=== PATIENT | female | born 1975 | race Two or more races ===

== ENCOUNTER 2017-11-27 02:07 | Inpatient (IN) | payer MEDICAID ==
[~2017-11-27] VITALS: Ht 149.9 cm; Wt 64.5 kg
[2017-11-27] MEDS ORDERED: GABA600T2 PO (02:17)
[2017-11-27] MEDS ORDERED: CALC500T3 PO (02:17)
[2017-11-27] MEDS ORDERED: FOLI1TAB16 PO (02:17)
[2017-11-27] MEDS ORDERED: CHOL100045 PO (02:17)
[2017-11-27] MEDS ORDERED: IBUP-1957 PO (02:17)
[2017-11-27] MEDS ORDERED: OMEP20CA10 PO (02:17)
[2017-11-27] MEDS ORDERED: ONDANSETRON 4 MG/2 ML VIAL IV ONE ×2 (02:30→11:55)
[2017-11-27] MEDS ORDERED: PANTOPRAZOLE SODIUM 40 MG VIAL IV ONE (02:30)
[2017-11-27] MEDS ORDERED: HYDROMORPHONE 1 MG/1 ML DISP.SYRIN IV ONE (02:30)
[2017-11-27] MEDS ORDERED: IV NORMAL SALINE 1000 ML BAG IV ONE ×2 (02:30→11:55)
[2017-11-27] MEDS ORDERED: PANTOPRAZOLE SODIUM 40 MG VIAL ONE (02:33)
[2017-11-27] MEDS ORDERED: HYDROMORPHONE 2 MG/1 ML DISP.SYRIN ONE ×2 (02:34→16:55)
[2017-11-27] MEDS ORDERED: ONDANSETRON 4 MG/2 ML VIAL ONE (02:34)
[2017-11-27 03:04] LABS: *BILIRUBIN,URIN NEGATIVE (NEGATIVE); *BLOOD, URINE 3+ (NEGATIVE); *CLARITY,URINE SLIGHTLY CLOUDY (CLEAR); *COLOR,URINE YELLOW (YELLOW); *KETONES,URINE NEGATIVE (NEGATIVE); *PROTEIN,URINE 1+ (NEGATIVE); *UROBILINOGEN,URINE 0.2 E.U./dl (NORMAL); LEUKOCYTE ESTERASE ,URINE NEGATIVE (NEGATIVE); NITRITE, URINE NEGATIVE (NEGATIVE); PH,URINE >=9.0 (5.0-8.0); UGLUCOSE NEGATIVE (NEGATIVE)
[2017-11-27 03:06] LABS: BASOPHILS % (AUTO) 0.2 % (0.0-2.0); EOSINOPHILS # (AUTO) 0.1 K/uL (0.0-0.7); EOSINOPHILS % (AUTO) 0.8 % (0.0-7.0); HEMATOCRIT 37.8 % (31.2-41.9); HEMOGLOBIN 13.2 g/dL (10.9-14.3); LYMPHOCYTES % (AUTO) 9.1 % (20.5-51.5); MEAN CORPUSCULAR HEMOGLOBIN 31.4 uug (24.7-32.8); MEAN CORPUSCULAR HGB CONC 35 g/dL (32.3-35.6); MEAN CORPUSCULAR VOLUME 89.7 fL (75.5-95.3); MONOCYTES # (AUTO) 0.3 K/uL (2.0-10.0); MONOCYTES % (AUTO) 2.5 % (0.0-11.0); NEUTROPHILS # (AUTO) 9.6 K/uL (1.8-8.9); NEUTROPHILS % (AUTO) 87.4 % (38.5-71.5); PLATELET COUNT (AUTO) 275 K/uL (179-408); RED BLOOD CELL COUNT(AUTO) 4.21 MIL/uL (3.63-4.92)
[2017-11-27 03:12] LABS: *URINE HCG, QUAL NEGATIVE (NEGATIVE); BACTERIA,URINE NONE SEEN /HPF (NONE SEEN); RBC,URINE 80-100 /HPF (0-3); SQUAMOUS EPITHELIAL CELL,UR FEW /HPF (NONE SEEN); WBC,URINE 0-3 /HPF (0-3)
--- NOTE | 2017-11-27 03:15 | NUR ---
RADIOLOGY NFORMED OF HCG RESULT. NOW PENDING CT.
--- NOTE | 2017-11-27 03:21 | NUR ---
PT TAKEN TO CT VIA [facility]AS[facility]. NO DISTRESS NOTED.
[2017-11-27 03:26] LABS: CREATININE 0.6 mg/dL (0.6-1.3); POTASSIUM 3.3 mmol/L (3.5-5.1)
[2017-11-27 03:32] LABS: BILIRUBIN,DIRECT 0.1 mg/dL (0.0-0.2); BILIRUBIN,TOTAL 0.2 mg/dL (0.2-1.0); TOTAL PROTEIN, SERUM 7.6 g/dL (6.4-8.2)
--- NOTE | 2017-11-27 03:42 | NUR ---
PT BACK IN ROOM FROM CT. PERIPHERAL IV WAS ACCIDENTALLY REMOVED DURING TIME IN RADIOLOGY. NEW LINE PLACED.
--- NOTE | 2017-11-27 03:53 | NUR ---
DR STREETER SPEAKING TO RADIOLOGIST REGARDING CT SCAN.
[2017-11-27] MEDS ORDERED: CEFTRIAXONE 1 G VIAL ONE (04:09)
[2017-11-27] MEDS ORDERED: METRONIDAZOLE 500 MG/NS 100ML 100 ML IV ONE (04:09)
[2017-11-27] MEDS ORDERED: IV NS 1000 ML 1,000 ML IV PRN (04:14)
[2017-11-27] MEDS ORDERED: ONDANSETRON 4 MG/2 ML VIAL IV PRN (04:15)
[2017-11-27] MEDS ORDERED: ACETAMINOPHEN 325 MG TABLET PO PRN (04:15)
[2017-11-27] MEDS ORDERED: CEFTRIAXONE 1 G in IV DEXTROSE 5% 50 ML IV ONE (04:15)
[2017-11-27] MEDS ORDERED: MORPHINE SULFATE 2 MG/1 ML DISP.SYRIN IV PRN (04:15)
[2017-11-27] MEDS ORDERED: METRONIDAZOLE 500 MG/NS 100 ML PIGGYBACK IV ONE (04:15)
--- NOTE | 2017-11-27 04:32 | NUR ---
REPORT GIVEN TO JAC FLORES.
[2017-11-27 04:55] VITALS: BP 89/50
--- NOTE | 2017-11-27 05:03 | NUR ---
PT ALERT AWAKE IN NO ACUTE DISTRESS. NO CURRENT ABDOMINAL PAIN AT THIS TIME. AWAITING ADMITTING ORDERS FROM DR REYNA. BP 89/50 P 59 RR 18 T 97.5 O2 97%. CALL LIGHT WITHIN REACH. WILL CONTINUE TO MONITOR.
--- NOTE | 2017-11-27 05:03 | NUR ---
Pt. admitted to [facility], under care of Dr. REYNA Belongs List completed
--- NOTE | 2017-11-27 06:12 | NUR ---
HEALTH AND SAFETY TRAINER SHOWING SINUS LUCINDA WITH HR AT 58. PT MADE AWARE OF CURRENT NPO STATUS AT THIS TIME.
[2017-11-27 06:20] LABS: MAGNESIUM 1.6 mg/dL (1.8-2.4); PHOSPHOROUS 4.1 mg/dL (2.5-4.9)
[2017-11-27] MEDS ORDERED: ENOXAPARIN SODIUM 40 MG/0.4 ML DISP.SYRIN SQ SCH (09:00)
[2017-11-27] MEDS: PANTOPRAZOLE SODIUM 40 MG VIAL IV SCH (09:00)
--- NOTE | 2017-11-27 09:34 | NUR ---
PATIENT IN STABLE CONDITION, NO S/S OF DISTRESS. COMPLAINS OF ABDOMINAL PAIN 4/10. VERBALIZES THAT PAIN IS TOLERABLE WITHOUT PAIN MEDICATION. SINUS RHYTHM ON TELE MONITOR. AMBULATORY, ALERT/ORIENTED. BED IN LOCKED/LOW POSITION, SIDE RAILS UP X2, CALL LIGHT WITHIN REACH.
[2017-11-27 10:02] VITALS: BP 113/59
--- NOTE | 2017-11-27 10:27 | NUR ---
DR. TY CALLED TO NOTIFY OF PROCEDURE CONSENT NEEDED. LAPAROSCOPIC APPENDECTOMY, POSSIBLE OPEN. CONSENT SIGNED BY PATIENT.
--- NOTE | 2017-11-27 10:27 | NUR ---
LOVENOX NOT ADMINISTERED. SURGERY/PROCEDURE SCHEDULED FOR TODAY.
[2017-11-27] MEDS ORDERED: MORPHINE SULFATE 4 MG/1 ML DISP.SYRIN IV PRN (11:05)
[2017-11-27 11:22] VITALS: BP 91/52
[2017-11-27] MEDS: MAGNESIUM SULFATE/D5W 100 ML IV SCH ×2 (11:34→12:51)
[2017-11-27] MEDS ORDERED: PROPOFOL 200 MG/20 ML BOTTLE IV ONE (11:55)
[2017-11-27] MEDS ORDERED: DEXAMETHASONE SOD PHOSPHATE 4 MG INJ IV ONE (11:55)
[2017-11-27] MEDS ORDERED: DESFLURANE ANESTHESIA GAS 240 ML BOTTLE IH ONE (11:55)
[2017-11-27] MEDS ORDERED: LIDOCAINE HCL 2% 20 ML VIAL MC ONE (11:55)
[2017-11-27] MEDS ORDERED: CEFAZOLIN 1 G VIAL MC ONE (11:55)
[2017-11-27] MEDS ORDERED: NEOSTIGMINE METHYLSULFATE 10 MG/10 ML VIAL IV ONE (11:55)
[2017-11-27] MEDS ORDERED: GLYCOPYRROLATE 0.2 MG/ML VIAL MC ONE (11:55)
[2017-11-27] MEDS ORDERED: KETOROLAC TROMETHAMINE 30 MG INJ IM ONE (11:55)
[2017-11-27] MEDS: POTASSIUM CHLORIDE 50 ML IV SCH ×2 (12:00→13:54)
[2017-11-27 15:06] VITALS: BP 99/50
[2017-11-27] MEDS: METRONIDAZOLE 500 MG/NS 100ML 500 MG in PREMIXED 1 EACH IV SCH ×2 (15:19→22:45)
[2017-11-27 15:27] LABS: *URINE HCG, QUAL NEGATIVE (NEGATIVE)
--- NOTE | 2017-11-27 16:30 | NUR ---
PATIENT LEFT FOR SURGERY AT THIS TIME IN STABLE CONDITION, NO S/S OF DISTRESS. CONSENT SIGNED.
[2017-11-27] MEDS ORDERED: LIDOCAINE 1%-EPI 1:100,000 20 ML VIAL ONE (16:31)
[2017-11-27] MEDS ORDERED: BUPIVACAINE 0.25% 30 ML VIAL ONE (16:31)
[2017-11-27] MEDS ORDERED: MIDAZOLAM HCL 2 MG/2 ML VIAL ONE (16:55)
[2017-11-27] MEDS ORDERED: ROCURONIUM BROMIDE 50 MG/5 ML VIAL ONE (16:55)
[2017-11-27] MEDS ORDERED: SUCCINYLCHOLINE CHLORIDE 200 MG/10 ML VIAL ONE (16:55)
[2017-11-27] MEDS ORDERED: FENTANYL CITRATE 100 MCG/2 ML AMPUL ONE (18:20)
[2017-11-27] MEDS ORDERED: OXYCODONE/APAP 5-325 MG TABLET PO PRN (18:30)
[2017-11-27] MEDS ORDERED: IV D5W-0.45% NS +20 KCL 1,000 ML IV PRN (18:30)
[2017-11-27] MEDS ORDERED: IV D5W-0.45% NS +20 KCL 1,000 ML IV ONE (18:51)
[2017-11-27 20:00] VITALS: BP 103/57
--- NOTE | 2017-11-27 20:00 | NUR ---
RECEIVED PATIENT AWAKE IN BED WITH FAMILY AT BEDSIDE. PATIENT IS A/O X3. RUSSIAN SPEAKING BUT ABLE TO MAKE NEEDS KNOWN. C/O MILD PAIN, BUT TOLERABLE AT THIS MOMENT, WILL CONTINUE TO MONITOR AND ASSESS PAIN. IVF INFUSING WELL TO RIGHT HAND #20 GAUGE. ON O2 2L NC SATING WELL. NO RESP. DISTRESS NOTED. PATIENT EDUCATED ON THE IMPORTANCE OF GETTING OOB AND AMBULATING. VERBALIZED UNDERSTANDING, CALL LIGHT IN REACH. ALL NEEDS ATTENDED. WILL CONTINUE TO MONITOR AND ASSESS.
--- NOTE | 2017-11-27 20:30 | NUR ---
PATIENT C/O OF PAIN AND NAUSEA AT THIS TIME. PATIENT GIVEN ZOFRAN 4MG IV AND MORPHINE 2MG IV PRN PER CARRIER OPERATOR. VS WNL. WILL CONTINUE TO MONITOR.
--- NOTE | 2017-11-27 21:30 | NUR ---
PATIENT RESTING IN BED. MEDICATION EFFECTIVE. NO COMPLAINTS OF PAIN OR NAUSEA AT THIS TIME. PATIENT ASSISTED TO BATHROOM. RE-EDUCATED ON IMPORTNACEE OF AMBULATION AND INSTRUCTIONS/TEACHING GIVEN ON IS. VERBALIZED UNDERSTANDING, ALL NEEDS ATTENDED. WILL CONTINUE TO MONITOR. Addendum: 11/28/17 at 0038 by LETICIA WEEKS LVN *IMPORTANCE.
[2017-11-28 05:39] VITALS: BP 96/61
[2017-11-28 06:06] LABS: BASOPHILS % (AUTO) 0.3 % (0.0-2.0); HEMATOCRIT 34.9 % (31.2-41.9); HEMOGLOBIN 12.2 g/dL (10.9-14.3); LYMPHOCYTES # (AUTO) 0.5 K/uL (20.0-40.0); LYMPHOCYTES % (AUTO) 11.1 % (20.5-51.5); MEAN CORPUSCULAR HEMOGLOBIN 31.8 uug (24.7-32.8); MEAN CORPUSCULAR HGB CONC 35 g/dL (32.3-35.6); MEAN CORPUSCULAR VOLUME 91.2 fL (75.5-95.3); MONOCYTES # (AUTO) 0.3 K/uL (2.0-10.0); NEUTROPHILS # (AUTO) 3.6 K/uL (1.8-8.9); NEUTROPHILS % (AUTO) 82.6 % (38.5-71.5); PLATELET COUNT (AUTO) 245 K/uL (179-408); RED BLOOD CELL COUNT(AUTO) 3.83 MIL/uL (3.63-4.92); WHITE BLOOD COUNT (AUTO) 4.4 K/uL (3.8-11.8)
[2017-11-28] MEDS: PANTOPRAZOLE SODIUM 40 MG VIAL IV SCH (06:06)
[2017-11-28] MEDS: METRONIDAZOLE 500 MG/NS 100ML 500 MG in PREMIXED 1 EACH IV SCH ×2 (06:06→14:00)
[2017-11-28 06:23] LABS: CARBON DIOXIDE 25 mmol/L (21-32); CHLORIDE 104 mmol/L (98-107); CREATININE 0.5 mg/dL (0.6-1.3); GLUCOSE 143 mg/dL (74-106); PHOSPHOROUS 3.9 mg/dL (2.5-4.9); POTASSIUM 4.1 mmol/L (3.5-5.1); UREA NITROGEN, BLOOD 6 mg/dL (7-18)
--- NOTE | 2017-11-28 06:50 | NUR ---
PATIENT AWAKE IN BED. SLEPT WELL. NO C/O PAIN AT THIS TIME. IVF INFUSING WELL ORDERED. CALL LIGHT IN REACH. ALL NEEDS ATTENDED . WILL CONTINUE TO MONITOR.
--- NOTE | 2017-11-28 07:33 | NUR ---
patient resting comfortably in bed, no s/s of distress. patient verbalizes minimal pain that is tolerable without pain medication. patient using incentive spirometer. discharging home today. will continue to monitor. will provide pain management if needed.
[2017-11-28] MEDS ORDERED: CEFTRIAXONE 1 G in IV DEXTROSE 5% 50 ML IV SCH (09:00)
[2017-11-28] MEDS ORDERED: HYDR-3326 PO (10:00)
[2017-11-28] MEDS ORDERED: METR500T PO (10:03)
[2017-11-28] MEDS ORDERED: CIPR-262 PO (10:03)
[2017-11-28 11:01] VITALS: BP 99/66
[2017-11-28 11:05] VITALS: BP 103/62
[2017-11-28] MEDS ORDERED: DOCUSATE SODIUM 100 MG CAPSULE PO ONE (14:30)
[2017-11-28] MEDS ORDERED: SENNOSIDES 1 TABLET PO ONE (14:30)
[2017-11-28 15:08] VITALS: BP 115/56
--- NOTE | 2017-11-28 18:30 | NUR ---
discharge packet/instructions provided. iv-disconnected. informed patient to follow up with Dr. Jordan to remove elaine in 1-week. Dr. Jordan's information provided to patient. prescriptions provided to patient. pharmacy spoke with patient regarding new medications.
--- NOTE | 2017-11-28 18:30 | NUR ---
patient discharged at this time in stable condition. complained of minimal pain at surgical incision sites. bowel sounds present. discharged delayed due to no flatus passed and no bm. notified MEDICAL LABORATORY TECHNICIANS throughout shift. sennokot and colace administered. still no bm or flatus passed following administration of sennokot and colace. Bowel sounds present upon auscultation. MEDICAL LABORATORY TECHNICIANS approves patient to go home after bowel sounds were heard. patient picked up by Danie (friend).
[2017-11-29] MEDS ORDERED: PANTOPRAZOLE SODIUM 40 MG TABLET.DR PO SCH (07:00)
== END 2017-11-28 18:50 | disposition home or self-care (01) | DRG 225 ==
LOC: ER 02:13 → TELE 04:00 → MED 19:10
PROVIDERS: ADMIT Nurse Practitioner Acute Care; ATTEND Internal Medicine
PROC: 0DTJ4ZZ Resection of Appendix, Percutaneous Endoscopic Approach (ICD-10-PCS; principal; 2017-11-27 16:53)
DX: K35.80 Unspecified acute appendicitis (principal); E83.42 Hypomagnesemia; E87.6 Hypokalemia; M06.9 Rheumatoid arthritis, unspecified; K21.9 Gastro-esophageal reflux disease without esophagitis
CPT/HCPCS: 36415; 83690; 83735; 84100; 84703; 85025; 85730; 93005; 94003; 94640; A4663; C9113; J0330; J0690; J0696; J1100; J1170; J1650; J1885; J2250; J2270; J2405; J2710; J3010; J3475; J3480; J3490; J7030; J7060